=== PATIENT | female | born 1985 | race Caucasian/White ===

== ENCOUNTER 2018-07-19 12:03 | Emergency (ER) | payer OTHER ==
[2018-07-19 13:04] LABS: Urine Blood NEGATIVE (NEG); Urine Glucose NEGATIVE (NEG); Urine Protein NEGATIVE (NEG)
[2018-07-19] MEDS ORDERED: KETOROLAC 30 MG/ML INJ ONE (14:15)
[2018-07-19 14:38] LABS: Urine Bacteria <20 /HPF (<20); Urine Culture Reflex Order REFLEXED; Urine RBC NONE SEEN /HPF (NONE SEEN)
[2018-07-19 14:39] LABS: Urine Amorphous Sediment 4+ /HPF (NONE SEEN)
--- NOTE | 2018-07-19 15:03 | RAD REPORT ---
EXAM DESCRIPTION: CT - Stone Protocol - 07/19/2018 2:27 pm CLINICAL HISTORY: Abdominal pain. Flank pain dysuria COMPARISON: None. TECHNIQUE: Computed axial tomography of the abdomen pelvis was obtained without oral or IV contrast. Lack of IV and oral contrast limits evaluation of solid organs, bowel, and vessels. Coronal reformat jesus alberto images were obtained and reviewed. All CT scans are performed using dose optimization technique as appropriate and may include automated exposure control or mA/KV adjustment according to patient size. FINDINGS: A 2 millimeter nonobstructing right renal calculus. A left renal calculus is not seen. No hydronephrosis. An ureteral calculus is not noted. A bladder calculus is not present. The liver, spleen, pancreas and adrenals appear grossly normal There is no evidence of diverticulitis. The appendix appears normal Moderate amount of stool within the colon IMPRESSION: 2 millimeter nonobstructing right renal calculus
--- NOTE | 2018-07-19 15:20 | ER ---
Nurse's Notes [facility] Name: Ann Rodriguez Age: 32 yrs Sex: Female : 1985 Arrival Date: 07/19/2018 Time: 12:04 Bed 14 Private MD: Unknown, Unknown Diagnosis: Calculus of kidney;Constipation Presentation: 07/19 12:07 Presenting complaint: Patient states: burning with urination both before and after for ch the past 4-5 days. I tried AZO but it didn't help. Transition of care: patient was not received from another setting of care. Onset of symptoms was July 15, 2017. Risk Assessment: Do you want to hurt yourself or someone else? Patient reports no desire to harm self or others. Initial Sepsis Screen: Does the patient meet any 2 criteria? No. Patient's initial sepsis screen is negative. Does the patient have a suspected source of infection? No. Patient's initial sepsis screen is negative. Care prior to arrival: None. 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 - Social history:: Smoking status: Patient uses tobacco products, smokes one pack cigarettes per day. Patient/guardian denies using alcohol, street drugs. - Ebola Screening: : Patient negative for fever greater than or equal to 101.5 degrees Fahrenheit, and additional compatible Ebola Virus Disease symptoms Patient denies exposure to infectious person Patient denies travel to an Ebola-affected area in the 21 days before illness onset No symptoms or risks identified at this time. Screenin:15 Abuse screen: Denies threats or abuse. Nutritional screening: No deficits noted. rb1 Tuberculosis screening: No symptoms or risk factors identified. Fall Risk None identified. Assessment: 12:15 General: Appears in no apparent distress. comfortable, slender, Behavior is calm, rb1 cooperative. Pain: Complains of pain in left lower quadrant Pain currently is 9 out of 10 on a pain scale. Pain began 4-5 days ago. Neuro: Level of Consciousness is awake, alert, obeys commands, Oriented to person, place, time, situation. Cardiovascular: Capillary refill < 3 seconds is brisk in bilateral fingers. Respiratory: Airway is patent Respiratory effort is even, unlabored, Respiratory pattern is regular, symmetrical. GI: No signs and/or symptoms were reported involving the gastrointestinal system. : Reports burning with urination, since x 4-5 days. Derm: Skin is pink, warm \T\ dry. 13:15 Reassessment: Patient appears in no apparent distress at this time. No changes from rb1 previously documented assessment. 13:55 Reassessment: Pt. requested pain medication; provider notified. Received order to rb1 Toradol 60 mg IM x once. 14:15 Reassessment: Patient appears in no apparent distress at this time. Patient and/or rb1 family updated on plan of care and expected duration. Pain level reassessed. Patient is alert, oriented x 3, equal unlabored respirations, skin warm/dry/pink. 15:05 Reassessment: Patient appears in no apparent distress at this time. Patient and/or rb1 family updated on plan of care and expected duration. Pain level reassessed. Patient is alert, oriented x 3, equal unlabored respirations, skin warm/dry/pink. Pain 7/10. Vital Signs: 12:09 BP 143 / 97; Pulse 94; Resp 18; Temp 98.3; Pulse Ox 100% on R/A; Weight 45.36 kg; Height 5 ft. 3 in. (160.02 cm); Pain 8/10; 13:30 BP 121 / 86; Pulse 93; Resp 16; Pulse Ox 100% on R/A; Pain 9/10; rb1 14:00 BP 126 / 88; Pulse 86; Resp 16; Pulse Ox 100% ; rb1 15:00 BP 130 / 90; Pulse 83; Resp 15; Pulse Ox 100% on R/A; rb1 12:09 Body Mass Index 17.71 (45.36 kg, 160.02 cm) ED Course: 12:04 Patient arrived in ED. ag5 12:04 Unknown, Unknown is Private Physician. ag5 12:05 Molly Mart FNP-C is [facility]. kb 12:06 Elpidio James MD is Attending Physician. kb 12:08 Triage completed. 12:15 Patient has correct armband on for positive identification. Bed in low position. Call rb1 light in reach. Side rails up X 1. Pulse ox on. NIBP on. Warm blanket given. 12:15 Arm band placed on right wrist. rb1 12:52 Yael Goetz, RN is Primary Nurse. rb1 14:27 CT Stone Protocol In Process Unspecified. EDMS 15:29 No provider procedures requiring assistance completed. Patient did not have IV access rb1 during this emergency room visit. Administered Medications: 14:05 Drug: TORadol 60 mg Route: IM; Site: right gluteus; rb1 15:03 Follow up: Response: No adverse reaction; Pain is decreased; 11/23 rb1 Intake: Outcome: 15:20 Discharge ordered by . kb 15:29 Discharged to home ambulatory, with significant other. rb1 15:29 Condition: stable 15:29 Discharge instructions given to patient, Instructed on discharge instructions, follow up and referral plans. medication usage, Demonstrated understanding of instructions, follow-up care, medications, Prescriptions given X 1. 15:30 Patient left the ED. rb1 Signatures: Dispatcher [employer] EDMN Molly Mart, DIGITAL PROJECT MANAGER-C DIGITAL PROJECT MANAGER-Ivory Johnson, RN RN Yael Goetz, RN RN rb1 Zafar Flores ag5
--- NOTE | 2018-07-19 15:21 | EDPHYS ---
Physician Documentation [facility] Name: Ann Rodriguez Age: 32 yrs Sex: Female : 1985 Arrival Date: 07/19/2018 Time: 12:04 Bed 14 Private MD: Unknown, Unknown ED Physician Elpidio James HPI: 07/19 14:42 This 32 yrs old Female presents to ER via Ambulatory with complaints of kb UNABLE TO URINATE. 14:43 The patient complains of pain in the left flank. The pain does not radiate. Onset: The kb symptoms/episode began/occurred 4 day(s) ago. Modifying factors: The symptoms are alleviated by nothing. the symptoms are aggravated by palpation/percussion, urination. Associated signs and symptoms: Pertinent positives: dysuria. Severity of pain: At its worst the pain was moderate in the emergency department the pain is unchanged. The patient has not experienced similar symptoms in the past. The patient has not recently seen a physician. 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 - Social history:: Smoking status: Patient uses tobacco products, smokes one pack cigarettes per day. Patient/guardian denies using alcohol, street drugs. - Ebola Screening: : Patient negative for fever greater than or equal to 101.5 degrees Fahrenheit, and additional compatible Ebola Virus Disease symptoms Patient denies exposure to infectious person Patient denies travel to an Ebola-affected area in the 21 days before illness onset No symptoms or risks identified at this time. ROS: 14:41 Constitutional: Negative for fever, chills, and weight loss, Cardiovascular: Negative kb for chest pain, palpitations, and edema, Respiratory: Negative for shortness of breath, cough, wheezing, and pleuritic chest pain, Abdomen/GI: Negative for abdominal pain, nausea, vomiting, diarrhea, and constipation, MS/Extremity: Negative for injury and deformity, Skin: Negative for injury, rash, and discoloration, Neuro: Negative for headache, weakness, numbness, tingling, and seizure. 14:41 : Positive for flank pain, burning with urination. Exam: 14:41 Constitutional: This is a well developed, well nourished patient who is awake, alert, kb and in no acute distress. Head/Face: Normocephalic, atraumatic. Chest/axilla: Normal chest wall appearance and motion. Nontender with no deformity. No lesions are appreciated. Cardiovascular: Regular rate and rhythm with a normal S1 and S2. No gallops, murmurs, or rubs. Normal PMI, no JVD. No pulse deficits. Respiratory: Lungs have equal breath sounds bilaterally, clear to auscultation and percussion. No rales, rhonchi or wheezes noted. No increased work of breathing, no retractions or nasal flaring. Abdomen/GI: Soft, non-tender, with normal bowel sounds. No distension or tympany. No guarding or rebound. No evidence of tenderness throughout. Skin: Warm, dry with normal turgor. Normal color with no rashes, no lesions, and no evidence of cellulitis. MS/ Extremity: Pulses equal, no cyanosis. Neurovascular intact. Full, normal range of motion. Neuro: Awake and alert, GCS 15, oriented to person, place, time, and situation. Cranial nerves II-XII grossly intact. Motor strength 5/5 in all extremities. Sensory grossly intact. Cerebellar exam normal. Normal gait. 14:42 Back: CVA tenderness, that is mild, is noted on the left. Vital Signs: 12:09 BP 143 / 97; Pulse 94; Resp 18; Temp 98.3; Pulse Ox 100% on R/A; Weight 45.36 kg; Height 5 ft. 3 in. (160.02 cm); Pain 8/10; 13:30 BP 121 / 86; Pulse 93; Resp 16; Pulse Ox 100% on R/A; Pain 9/10; rb1 14:00 BP 126 / 88; Pulse 86; Resp 16; Pulse Ox 100% ; rb1 15:00 BP 130 / 90; Pulse 83; Resp 15; Pulse Ox 100% on R/A; rb1 12:09 Body Mass Index 17.71 (45.36 kg, 160.02 cm) MDM: 12:10 Patient medically screened. kb 14:41 Data reviewed: vital signs, nurses notes. Data interpreted: Pulse oximetry: on room air kb is 100 %. Interpretation: normal. 15:18 Counseling: I had a detailed discussion with the patient and/or guardian regarding: the kb historical points, exam findings, and any diagnostic results supporting the discharge/admit diagnosis, lab results, radiology results, the need for outpatient follow up, a family practitioner, to return to the emergency department if symptoms worsen or persist or if there are any questions or concerns that arise at home. 07/19 12:10 Order name: Urine Microscopic Only; Complete Time: 14:41 kb 07/19 12:25 Order name: Urine Dipstick--Ancillary (enter results); Complete Time: 13:13 ss 07/19 12:25 Order name: Urine --Ancillary (enter results); Complete Time: 13:13 ss 07/19 14:05 Order name: CT Stone Protocol; Complete Time: 15:04 kb 07/19 14:40 Order name: Urine Culture [facility] 07/19 12:10 Order name: Urine Test (obtain specimen); Complete Time: 12:22 kb 07/19 12:10 Order name: Urine Dipstick-Ancillary (obtain specimen); Complete Time: 12:22 kb Administered Medications: 14:05 Drug: TORadol 60 mg Route: IM; Site: right gluteus; rb1 15:03 Follow up: Response: No adverse reaction; Pain is decreased; 11/23 rb1 Disposition: 18:03 Co-signature as Attending Physician, Elpidio James MD. rn Disposition: 07/19/18 15:20 Discharged to Home. Impression: Calculus of kidney, Constipation. - Condition is Stable. - Discharge Instructions: Constipation, Adult, [id number], Kidney Stones, [id number]. - Prescriptions for Diclofenac Sodium 75 mg Oral Tablet, Delayed Release (E.C.) - take 1 tablet by ORAL route 2 times per day As needed; 30 tablet. - Medication Reconciliation Form, Thank You Letter, Antibiotic Education, Prescription Opioid Use form. - Follow up: Emergency Department; When: As needed; Reason: Worsening of condition. Follow up: Private Physician; When: 2 - 3 days; Reason: Recheck today's complaints, Continuance of care, Re-evaluation by your physician. Signatures: Dispatcher [employer] EDRI Molly Mart, BANDER AND CELLOPHANER HELPER MACHINE-C BETH-Ckb Martel, ZAKIA Dodson RN, ch, Roman, MD MD rn Barber, Rebecca, RN RN rb1 Corrections: (The following items were deleted from the chart) 14:42 14:41 Constitutional: This is a well developed, well nourished patient who is awake, kb alert, and in no acute distress. Head/Face: Normocephalic, atraumatic. Chest/axilla: Normal chest wall appearance and motion. Nontender with no deformity. No lesions are appreciated. Cardiovascular: Regular rate and rhythm with a normal S1 and S2. No gallops, murmurs, or rubs. Normal PMI, no JVD. No pulse deficits. Respiratory: Lungs have equal breath sounds bilaterally, clear to auscultation and percussion. No rales, rhonchi or wheezes noted. No increased work of breathing, no retractions or nasal flaring. Abdomen/GI: Soft, non-tender, with normal bowel sounds. No distension or tympany. No guarding or rebound. No evidence of tenderness throughout. Skin: Warm, dry with normal turgor. Normal color with no rashes, no lesions, and no evidence of cellulitis. MS/ Extremity: Pulses equal, no cyanosis. Neurovascular intact. Full, normal range of motion. Neuro: Awake and alert, GCS 15, oriented to person, place, time, and situation. Cranial nerves II-XII grossly intact. Motor strength 5/5 in all extremities. Sensory grossly intact. Cerebellar exam normal. Normal gait. kb 15:30 15:20 07/19/2018 15:20 Discharged to Home. Impression: Calculus of kidney; rb1 Constipation. Condition is Stable. Forms are Medication Reconciliation Form, Thank You Letter, Antibiotic Education, Prescription Opioid Use. Follow up: Emergency Department; When: As needed; Reason: Worsening of condition. Follow up: Private Physician; When: 2 - 3 days; Reason: Recheck today's complaints, Continuance of care, Re-evaluation by your physician. kb
== END 2018-07-19 15:30 | disposition home or self-care (01) ==
LOC: ER 12:03
DX: N20.0 Calculus of kidney (principal); K59.00 Constipation, unspecified; F17.210 Nicotine dependence, cigarettes, uncomplicated
CPT/HCPCS: 74176; 76377; 81003; 81015; 81025; 87086; 87088; 96372; 99284